=== PATIENT | female | born 1990 | race Caucasian/White ===

== ENCOUNTER 2019-11-03 22:28 | Emergency (ER) | payer MEDICAID ==
[~2019-11-03] VITALS: Ht 167.6 cm; Wt 69.4 kg
[2019-11-03 22:40] VITALS: BP 102/57
--- NOTE | 2019-11-03 22:45 | NUR ---
PT TAKEN TO ER BED 09
--- NOTE | 2019-11-03 22:51 | NUR ---
PA ASSESSED PT; NO NURSING INTERVENTIONS PERFORMED OR INDICATED.
[2019-11-03 22:52] VITALS: BP 102/57
--- NOTE | 2019-11-03 22:52 | NUR ---
Patient discharged with v/s stable. Written and verbal after care instructions given and explained. Patient alert, oriented and verbalized understanding of instructions. Ambulatory with steady gait. All questions addressed prior to discharge. ID band removed. Patient advised to follow up with PMD. Rx of TYLENOL, ROBITUSSIN given. Patient educated on indication of medication including possible reaction and side effects. Opportunity to ask questions provided and answered.
== END 2019-11-03 22:52 | disposition home or self-care (01) ==
LOC: MED 22:28
DX: J06.9 Acute upper respiratory infection, unspecified (principal)
CPT/HCPCS: 99282

== ENCOUNTER 2020-09-01 23:49 | Emergency (ER) | payer SELFPAY ==
[~2020-09-01] VITALS: Ht 167.6 cm; Wt 65.8 kg
--- NOTE | 2020-09-01 23:52 | NUR ---
[facility] TO ER BED 7 Addendum: 09/01/20 at 2353 by [facility] TO ER BED 7
[2020-09-02 00:05] VITALS: BP 119/76
--- NOTE | 2020-09-02 00:11 | NUR ---
EKG PERFORMED AT BEDSIDE. EKG READS SINUS RHYTHM @ 74
--- NOTE | 2020-09-02 00:12 | NUR ---
30 Y/O FEMALE BIBA FOR C/O SUDDEN PALPITATIONS AFTER DINNER. SHE STATES "SHE FELT HER HEART RACING AFTER TAKING A NEW PROTEIN FOR WORKOUT". SHE DENIED HAVING ANY PAIN OR DISCOMFORT. HEART SOUNDS WERE EVEN AND REGULAR AT 84 BEATS/MIN. RESPIRATIONS WERE EVEN AND UNLABORED. BED WAS LOCKED AND PLACED IN LOWEST POSITION. SIDE RAIL UP X 1 FOR SAFETY. PMHX: DENIES NKA
[2020-09-02 00:54] LABS: BASOPHILS % (AUTO) 0.6 % (0.0-2.0); EOSINOPHILS # (AUTO) 0.1 K/uL (0-0.4); EOSINOPHILS % (AUTO) 0.9 % (0.0-4.0); HEMATOCRIT 35.1 % (36-48); LYMPHOCYTES # (AUTO) 1.4 K/uL (2.5-16.5); LYMPHOCYTES % (AUTO) 21.5 % (20.5-51.1); MEAN CORPUSCULAR HEMOGLOBIN 32 pg (27-31); MEAN CORPUSCULAR HGB CONC 34 g/dL (33-37); MEAN CORPUSCULAR VOLUME 92.8 fL (80-94); MONOCYTES # (AUTO) 0.5 K/uL (0.8-1.0); MONOCYTES % (AUTO) 8.2 % (1.7-9.3); NEUTROPHILS # (AUTO) 4.4 K/uL (1.8-7.7); NEUTROPHILS % (AUTO) 68.8 % (42.2-75.2); PLATELET COUNT (AUTO) 182 K/uL (140-450); RED BLOOD CELL COUNT(AUTO) 3.78 MIL/uL (4.20-5.40); RED CELL DISTRIBUTION WIDTH 13.8 % (11.6-13.7); WHITE BLOOD COUNT (AUTO) 6.4 K/uL (4.8-10.8)
[2020-09-02 01:34] LABS: ALBUMIN 3.9 g/dL (3.4-5.0); ANION GAP 11.5 (8-16); CARBON DIOXIDE 25.2 mmol/L (21-32); CREATININE 0.9 mg/dL (0.6-1.3); POTASSIUM 3.7 mmol/L (3.5-5.1); THYROID STIMULATING HORMONE 8.76 uIU/mL (0.34-3.74); TOTAL BILIRUBIN 0.2 mg/dL (0.0-1.0)
--- NOTE | 2020-09-02 01:34 | NUR ---
LAYING IN BED IN SEMI-FOWLERS POSITION IN NO ACUTE DISTRESS NOTED. BREATHING EVEN AND UNLABORED EVIDENCE BY RISE AND FALL OF CHEST WALL. VSS, CONTINUES ON CARDIAC MONITORING, BP MONITORING, PULSE OXIMETRY. BED LOCKED AND IN LOWEST POSITION. SIDE RAIL UP X1 FOR SAFETY.
[2020-09-02 02:00] VITALS: BP 101/65
--- NOTE | 2020-09-02 02:00 | NUR ---
Patient discharged with v/s stable. Written and verbal after care instructions given and explained. Patient verbalized understanding. Ambulatory with steady gait. All questions addressed prior to discharge. Advised to follow up with PMD.
== END 2020-09-02 02:00 | disposition home or self-care (01) ==
LOC: MED 23:49
DX: R00.2 Palpitations (principal)
CPT/HCPCS: 36415; 71045; 80053; 84443; 85025; 93005; 99285

== ENCOUNTER 2020-09-16 19:52 | Emergency (ER) | payer MEDICAID ==
[~2020-09-16] VITALS: Ht 167.6 cm; Wt 68.0 kg
[2020-09-16 20:03] VITALS: BP 107/60
--- NOTE | 2020-09-16 20:06 | NUR ---
TO LOBBY A/W BED AMBULATORY
--- NOTE | 2020-09-16 20:52 | NUR ---
EKG PERFORMED IN TRIAGE ROOM. EKG READS SINUS RHYTHM @ 58
--- NOTE | 2020-09-16 22:07 | NUR ---
PT AMBULATED TO BED #7
--- NOTE | 2020-09-16 22:15 | NUR ---
PATIENT 30 Y/O FEMALE BIB SELF FOR INITAL C/O CHEST PAIN X " A FEW HOURS." PER PATIENT IN TRIAGE C/O 5/10 CHEST PAIN. UPON PRIMARY NURSE ASSESSMENT PATIENT DENIES CHEST PAIN. PATIENT STTES, "I FEEL FINE NOW, I JUST FEEL TIRED AND NOW I HAVE A MIGRANE 5/10 PAIN." PATIENT VSS. RESPIRATIONS ARE EVEN AND LABORED. LUNG SOUNDS CLEAR A/P. S1S2 NOTED. NO COUGH, AFEBRILE, DENIES CONTACT WITH COVID +. MEDHX: ANXIETY NKA
--- NOTE | 2020-09-16 22:24 | NUR ---
LAB AT BEDSIDE DRAWING BLOOD.
[2020-09-16 22:34] LABS: BASOPHILS % (AUTO) 0.5 % (0.0-2.0); EOSINOPHILS % (AUTO) 0.6 % (0.0-4.0); HEMOGLOBIN 12.6 g/dL (12.0-16.0); LYMPHOCYTES # (AUTO) 1.4 K/uL (2.5-16.5); MEAN CORPUSCULAR HEMOGLOBIN 31 pg (27-31); MEAN CORPUSCULAR HGB CONC 34 g/dL (33-37); MEAN CORPUSCULAR VOLUME 92.6 fL (80-94); MONOCYTES # (AUTO) 0.4 K/uL (0.8-1.0); MONOCYTES % (AUTO) 5.8 % (1.7-9.3); NEUTROPHILS # (AUTO) 4.6 K/uL (1.8-7.7); NEUTROPHILS % (AUTO) 71.1 % (42.2-75.2); PLATELET COUNT (AUTO) 182 K/uL (140-450); RED CELL DISTRIBUTION WIDTH 13.5 % (11.6-13.7); WHITE BLOOD COUNT (AUTO) 6.4 K/uL (4.8-10.8)
--- NOTE | 2020-09-16 22:37 | NUR ---
XRAY AT BEDSIDE.
[2020-09-16 22:48] LABS: ALBUMIN 4.2 g/dL (3.4-5.0); ANION GAP 10.4 (8-16); CARBON DIOXIDE 27.5 mmol/L (21-32); CREATININE 0.9 mg/dL (0.6-1.3); POTASSIUM 3.9 mmol/L (3.5-5.1); TOTAL BILIRUBIN 0.3 mg/dL (0.0-1.0)
[2020-09-16 22:49] LABS: PROTHROMBIN TIME 10.4 secs (10.8-13.4)
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
[2020-09-16] MEDS ORDERED: LORazepam 1 MG TAB PO ONE (23:00)
--- NOTE | 2020-09-16 23:23 | NUR ---
PATIENT REFUSED ATIVAN AT THIS TIME. "I FEEL BETTER I DON'T FEEL WEIRD ANYMORE." PATIENT PRESENTS CALM. PATIENT PLACED ON STUDY MANAGER FOR COMFORT MEASURES. VITAL SIGNS REMAIN WNL.
--- NOTE | 2020-09-16 23:35 | NUR ---
Dr. Guo examining patient.
[2020-09-16 23:55] VITALS: BP 114/64
== END 2020-09-16 23:55 | disposition home or self-care (01) ==
LOC: MED 19:52
DX: R07.9 Chest pain, unspecified (principal); R42 Dizziness and giddiness; F41.9 Anxiety disorder, unspecified
CPT/HCPCS: 36415; 71045; 80053; 83880; 84484; 85025; 85610; 85730; 93005; 99285